=== PATIENT | male | born 1960 | race Caucasian/White ===

== ENCOUNTER 2019-04-08 10:59 | Outpatient (CLI) | payer OTHER, SELFPAY ==
--- NOTE | 2019-04-08 11:12 | ECG_ITS ---
Measurements Intervals [place] Rate: 63 P: 8 OK: 223 QRS: 26 QRSD: 91 T: 8 QT: 373 QTc: 383 Interpretive Statements SINUS RHYTHM WITH FIRST DEGREE AV BLOCK ATRIAL PREMATURE COMPLEXES ABNORMAL ECG Electronically Signed On 04-08-2019 11:49:03 [employer]PORT ATTENDANT by Seamus Vanessa D.O.
== END 2019-04-08 11:00 | disposition home or self-care (01) ==
PROVIDERS: PCP Family Medicine; Visit Provider Nurse Practitioner Family
DX: R00.2 Palpitations (principal); I44.0 Atrioventricular block, first degree
CPT/HCPCS: 93005

== ENCOUNTER 2020-05-09 16:17 | Outpatient (CLI) | payer OTHER, SELFPAY | END 2020-05-09 16:18 | disposition home or self-care (01) | LOC: ANHCOVIDVC 16:17 | PROVIDERS: PCP Family Medicine | DX: Z23 Encounter for immunization (principal) | CPT/HCPCS: 0001A; 91300 ==

== ENCOUNTER 2020-05-30 10:54 | Outpatient (CLI) | payer OTHER, SELFPAY | END 2020-05-30 10:55 | disposition home or self-care (01) | LOC: ANHCOVIDVC 10:54 | PROVIDERS: PCP Family Medicine | DX: Z23 Encounter for immunization (principal) | CPT/HCPCS: 0002A; 91300 ==

== ENCOUNTER → 2020-09-05 08:01 | Outpatient (REF) | payer OTHER, SELFPAY | LOC: ANHLAB 08:01 | PROVIDERS: PCP Family Medicine; Visit Provider Nurse Practitioner | DX: D22.5 Melanocytic nevi of trunk (principal); D22.4 Melanocytic nevi of scalp and neck | CPT/HCPCS: 88305 ==

== ENCOUNTER 2024-09-17 10:35 | Outpatient (CLI) | payer OTHER, SELFPAY ==
--- NOTE | ~2024-09-17 | US_ITS ---
US renal BI 09/17/2024 11:31 Procedure: Realtime transabdominal ultrasound of the kidneys and bladder. Indication: Acute renal failure Comparison: CT dated 01/29/2014 Findings: Renal echotexture is normal bilaterally without hydronephrosis, contour deforming mass or r enal calculus. There is a left renal cyst measuring 4.6 cm. The right kidney measures 11.3 cm and lef t kidney measures 12.2 cm. Bladder within normal limits. Impression: 1: Left renal cyst measuring 4.6 cm. Reviewed, dictated and finalized at location B. Impression: 1: Left renal cyst measuring 4.6 cm.
== END 2024-09-17 10:36 | disposition home or self-care (01) ==
PROVIDERS: PCP Family Medicine; Visit Provider Nurse Practitioner Adult Health
DX: N17.9 Acute kidney failure, unspecified (principal); N28.1 Cyst of kidney, acquired
CPT/HCPCS: 76775